=== PATIENT | female | born 1985 | race Caucasian/White ===

== ENCOUNTER 2017-05-30 20:41 | Emergency (ER) | payer OTHER ==
[2017-05-30] MEDS ORDERED: ACETAMINOPHEN 325 MG TABLET PO ONE (23:27)
--- NOTE | 2017-05-30 23:52 | ER Document Report ---
ED General - General Chief Complaint: Fever, MORAN, Body aches Stated Complaint: FEVER AND HEADACHE Time Seen by Provider: 05/30/17 23:20 Notes: Patient is a 31-year-old female presents with complaint of fever. She says that she has had body aches as well as some neck pain and headache for the last 4 days. She has had a fever once she is gone down again had fever today. She is unsure how high fever was. No recent tick bites. She has had some bug bites in the feet. No vomiting. No diarrhea. No dysuria. She does have pain of her right back that radiates into her right lower quadrant. No abnormal vaginal discharge or bleeding. 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 She takes no medications and is otherwise healthy. He says she has had a slight congestion. Slight cough. TRAVEL OUTSIDE OF THE [place] IN LAST 30 DAYS: No - Related Data Allergies/Adverse Reactions: No Known Allergies Allergy (Unverified 05/30/17 21:04) Past Medical History - Social History Smoking Status: Never Smoker Frequency of alcohol use: None Drug Abuse: None Family History: Reviewed & Not Pertinent Renal/ Medical History: Denies: Hx Peritoneal Dialysis Review of Systems - Review of Systems Notes: My Normal Review Basic REVIEW OF SYSTEMS: CONSTITUTIONAL : Fever EENT: Denies eye, ear, throat, or mouth pain or symptoms. Denies nasal or sinus congestion. RESPIRATORY: Denies cough, cold, or chest congestion. Denies shortness of breath, difficulty breathing, or wheezing. GASTROINTESTINAL: Mild right lower quadrant abdominal pain. Denies nausea, vomiting, or diarrhea. Denies constipation. Last BM: GENITOURINARY: Denies difficulty urinating, painful urination, burning, frequency, or blood in urine. FEMALE GENITOURINARY: Denies vaginal bleeding, abnormal or irregular periods. MUSCULOSKELETAL: Denies neck or back pain or joint pain or swelling. SKIN: Denies rash or skin lesions. NEUROLOGICAL: Denies altered mental status or loss of consciousness. Has a headache. Denies weakness or paralysis or loss of use of either side. Denies problems with gait or speech. Denies sensory or motor loss. ALL OTHER SYSTEMS REVIEWED AND NEGATIVE. Physical Exam - Vital signs Vitals: Temp Pulse Resp BP Pulse Ox 100.6 F H 103 H 18 116/70 100 05/30/17 21:05/30/17 21:01 05/30/17 21:01 05/30/17 21:01 05/30/17 21:01 - Notes Notes: General Appearance: Well nourished, alert, cooperative, no acute distress, mild obvious discomfort. Vitals: reviewed, See vital signs table. Head: no swelling or tenderness to the head Eyes: PERRL, EOMI, Conjuctiva clear Mouth: No decreasd moisture Throat: No tonsillar inflammation, No airway obstruction, No lymphadenopathy Ears: Normal-appearing tympanic membranes bilaterally. Neck: Supple, no neck tenderness, Lungs: No wheezing, No rales, No rhonci, No accessory muscle use, good air exchange bilaterally. Heart: Normal rate, Regular rythm, No murmur, no rub Back: Positive Andrews's sign on the right. Abdomen: Normal BS, soft, No rigidity, mild right lower quadrant abdominal tenderness to palpation, No guarding, no rebound, no abdominal masses, Extremities: strength 5/5 in all extremities, good pulses in all extremities, no swelling or tenderness in the extremities, no edema. Skin: warm, dry, appropriate color, no rash Neuro: speech clear, oriented x 3, normal affect, responds appropriately to questions. Course - Re-evaluation Re-evalutation: 05/31/17 02:01 On reevaluation the patient says her headache is improving until Tylenol. She says that the headaches does seem to coincide with body aches. She says that when she does get headaches are typically at the base of her head which she typically gets these headaches even when she is not sick. She still has the pain in her right lower quadrant abdomen and her right lower back. Urinalysis is negative. On exam her pain is not very impressive with palpation of her abdomen yet her pain is focal to the right lower quadrant and therefore will obtain a CBC and BMP to see if she has a leukocytosis. I think meningitis is low on the differential at this time being that her symptoms have been ongoing for 4 days and she looks extremely well. Suspect if she had herpes meningitis or bacterial meningitis she would be at least somewhat altered or confused or more ill-appearing. She is fully neurologically intact, not ill appearing at all, he is fully awake and alert and well appearing. I informed her that because of this we will hold off on lumbar puncture at this time. Dictation of this chart was performed using voice recognition software; therefore, there may be some unintended grammatical errors. 05/31/17 04:[address] scan actually shows fat stranding around the right kidney. This is indicative of a recently passed kidney stone or possible developing infection. Urinalysis does not show much sign of infection; however, she has body aches and fever which clinically would make more sense with a developing pyelonephritis. I have ordered a dose of Rocephin. I will place her on Keflex. She does have some bug bites on her feet. I do not suspect these are tick bite; however, I will still send titers for recommended spotted fever. If they are positive then we will call her back and switch her antibiotics doxycycline. I strongly encouraged to return to ER immediately if she has worsening or symptoms, recurrent fevers, or feels unwell. On exam patient continues to clinically looks very well I feel she is safe to be discharged home. Patient agrees with plan and will be discharged home. Dictation of this chart was performed using voice recognition software; therefore, there may be some unintended grammatical errors. - Vital Signs Vital signs: Temp Pulse Resp BP Pulse Ox 100.6 F H 103 H 18 116/70 100 05/30/17 21:01 05/30/17 21:01 05/30/17 21:01 05/30/17 21:01 05/30/17 21:01 - Laboratory Result Diagrams: 05/31/17 02:20 05/31/17 02:20 Laboratory results interpreted by me: 05/31/17 05/31/17 05/31/17 00:45 02:20 02:20 WBC 11.1 H Hct 35.6 L Monocytes % 14.1 H Absolute Monocytes 1.6 H Sodium 136.8 L Urine Blood SMALL H Ur Leukocyte Esterase TRACE H Discharge - Discharge Clinical Impression: Body aches, Pyelonephritis Fever Qualifiers: Fever type: unspecified Qualified Code(s): R50.9 - Fever, unspecified Back pain Qualifiers: Back pain location: low back pain Chronicity: acute Back pain laterality: right Sciatica presence: without sciatica Qualified Code(s): M54.5 - Low back pain Headache Qualifiers: Headache type: unspecified Headache chronicity pattern: episodic headache Intractability: not intractable Qualified Code(s): R51 - Headache Condition: Good Disposition: HOME, SELF-CARE Additional Instructions: Your urinalysis does not show classic signs of infection; however, the CT scan performed does show stranding around your kidney which is suggestive of a developing kidney infection. This would explain why you have pain in your right lower back that radiates around the right flank. Sometimes this also means that you recently passed a kidney stone; however, in lieu of you having fevers and body aches this most likely represents a developing kidney infection. We did give a dose of antibiotic here for this. You did have some bug bites on your feet. I therefore did send blood titers to look for [place] spotted fever. These will take approximately 2 days to come back. If they are positive we will immediately call you to place her on a different antibiotic. Please return to the ER immediately if if recurrent fevers, severe worsening headache, neck stiffness, vomiting, worsening abdominal pain, or feel that you are worsening. Prescriptions: Cephalexin Monohydrate [Keflex 500 mg Capsule] 500 mg PO Q6H 7 Days capsule Forms: Return to Work
[2017-05-31 01:13] LABS: APPEARANCE,URINE CLEAR; BILIRUBIN,URINE NEGATIVE (NEGATIVE); GLUCOSE, URINE NEGATIVE (NEGATIVE); KETONES,URINE NEGATIVE (NEGATIVE); LEUKOCYTE ESTERASE,URINE TRACE (NEGATIVE); NITRITE,URINE NEGATIVE (NEGATIVE); PROTEIN,URINE NEGATIVE (NEGATIVE); URINE SPECIFIC GRAVITY 1.003; UROBILINOGEN,URINE NEGATIVE mg/dL (<2.0)
--- NOTE | 2017-05-31 01:38 | RADIOLOGY REPORT (SQ) ---
EXAM DESCRIPTION: CHEST PA/LAT COMPLETED DATE/TIME: 05/31/2017 1:09 am REASON FOR STUDY: fever COMPARISON: None. EXAM PARAMETERS: NUMBER OF VIEWS: two views TECHNIQUE: Digital Frontal and Lateral radiographic views of the chest acquired. RADIATION DOSE: NA LIMITATIONS: none FINDINGS: LUNGS AND PLEURA: Ground-glass opacity noted in the left lower lobe. No pneumothorax or p leural effusion. MEDIASTINUM AND HILAR STRUCTURES: No masses or contour abnormalities. HEART AND VASCULAR STRUCTURES: Heart normal size. No evidence for failure. BONES: No acute findings. HARDWARE: None in the chest. IMPRESSION: Ground-glass opacity in the left lower lobe, may represent developing pneumonia. Radiog raphic followup recommended. TECHNICAL DOCUMENTATION: JOB ID: [id number] 2010 [employer]- All Rights Reserved
[2017-05-31 02:42] LABS: ABSOLUTE BASOPHILS # (AUTO) 0.1 10^3/uL (0.0-0.2); ABSOLUTE EOSINOPHILS # (AUTO) 0.1 10^3/uL (0.0-0.6); ABSOLUTE LYMPHOCYTES (AUTO) 1.7 10^3/uL (0.5-4.7); ABSOLUTE MONOCYTES (AUTO) 1.6 10^3/uL (0.1-1.4); ABSOLUTE NEUT (AUTO) 7.7 10^3/uL (1.7-8.2); BASOPHILS % (AUTO) 0.5 % (0-2); EOSINOPHILS % (AUTO) 0.6 % (0-6); HEMATOCRIT 35.6 % (36.0-47.0); HEMOGLOBIN 12.4 g/dL (12.0-15.5); HGB HCT DIFFERENCE 1.6; LYMPHOCYTES % (AUTO) 15.4 % (13-45); MEAN CORPUSCULAR HEMOGLOBIN 30.5 pg (27.0-33.4); MEAN CORPUSCULAR HGB CONC 34.7 g/dL (32.0-36.0); MEAN CORPUSCULAR VOLUME 88 fl (80-97); MONOCYTES % (AUTO) 14.1 % (3-13); RED BLOOD COUNT 4.05 10^6/uL (3.72-5.28); RED CELL DISTRIBUTION WIDTH 12.7 % (11.5-14.0); SEGMENTED NEUTROPHILS % (AUTO) 69.4 % (42-78); WHITE BLOOD COUNT 11.1 10^3/uL (4.0-10.5)
[2017-05-31 02:50] LABS: ALANINE AMINOTRANSFERASE 23 U/L (9-52); ALBUMIN 3.7 g/dL (3.5-5.0); ALKALINE PHOSPHATASE 68 U/L (38-126); ANION GAP 12 (5-19); ASPARTATE AMINO TRANSFERASE 18 U/L (14-36); BILIRUBIN,DIRECT 0.4 mg/dL (0.0-0.4); BILIRUBIN,TOTAL 0.6 mg/dL (0.2-1.3); BLOOD UREA NITROGEN 9 mg/dL (7-20); CALCIUM 8.9 mg/dL (8.4-10.2); CARBON DIOXIDE 23 mmol/L (22-30); CHLORIDE 102 mmol/L (98-107); CREATININE RESULT 0.87 mg/dL (0.52-1.25); GLUCOSE 106 mg/dL (75-110); POTASSIUM 3.8 mmol/L (3.6-5.0); SODIUM 136.8 mmol/L (137-145); TOTAL PROTEIN 6.7 g/dL (6.3-8.2)
--- NOTE | 2017-05-31 03:56 | RADIOLOGY REPORT (SQ) ---
EXAM DESCRIPTION: CT LTD RENAL STONE PROTOCOL ON COMPLETED DATE/TIME: 05/31/2017 3:30 am REASON FOR STUDY: right flank pain COMPARISON: None. TECHNIQUE: CT scan of the abdomen and pelvis performed without intravenous or oral contrast. Images reviewed with lung, soft tissue, and bone windows. Reconstructed coronal and sagittal MPR images revi ewed. All images stored on PACS. All CT scanners at this facility use dose modulation, iterative reconstruction, and/or weight based d osing when appropriate to reduce radiation dose to as low as reasonably achievable (ALARA). [facility]: Dose Right [facility]: CareDose [facility]: Dose Right [facility]: Teradose 4D [facility]: [employer] RADIATION DOSE: Up-to-date CT equipment and radiation dose reduction techniques were employed. CTDIv ol: 5.4 mGy. DLP: 255 mGy-cm.mGy. LIMITATIONS: None. FINDINGS: LOWER CHEST: No consolidation or pleural effusion. NON-CONTRASTED LIVER, SPLEEN, ADRENALS: Evaluation limited by lack of IV contrast. No identified sign ificant masses. PANCREAS: No peripancreatic inflammatory changes. GALLBLADDER: No identified stones by CT criteria. No inflammatory changes to suggest cholecystitis. RIGHT KIDNEY AND URETER: Assessment for masses limited by lack of IV contrast. No significant calci fications. No hydronephrosis or hydroureter. There is mild right perinephric stranding. LEFT KIDNEY AND URETER: Assessment for masses limited by lack of IV contrast. No significant calcif ications. No hydronephrosis or hydroureter. AORTA AND RETROPERITONEUM: No abdominal aortic aneurysm. No retroperitoneal hemorrhage. BOWEL AND PERITONEAL CAVITY: No dilated bowel loops or inflammatory changes. No free fluid. APPENDIX: Not visualized. PELVIS, BLADDER, AND ABDOMINAL WALL:No abnormal masses. No free fluid. Bladder distended. BONES: No acute findings. IMPRESSION: No obstructing urinary tract calculi or hydronephrosis. Mild right-sided perinephric st randing, may be secondary to a recently passed calculus versus acute infection/inflammation such as p yelonephritis. Please correlate with laboratory values/ urinalysis. Distended urinary bladder. COMMENT: Quality ID # [id number]: Final reports with documentation of one or more dose reduction techniques (e.g., Automated exposure control, adjustment of the mA and/or kV according to patient size, use of iterative reconstruction technique) TECHNICAL DOCUMENTATION: JOB ID: [id number] 2010 [facility] [employer]- All Rights Reserved
[2017-05-31] MEDS ORDERED: HYDROCORTISONE 0.5% CREAM 28.35 GM TP PRN (04:01)
[2017-05-31] MEDS ORDERED: LIDOCAINE 1% INJ-PF (10 MG/ML) 30 ML SDV INFIL ONE (04:04)
[2017-05-31] MEDS ORDERED: CEFTRIAXONE INJ 1000 MG VIAL IM ONE (04:04)
[2017-05-31] MEDS ORDERED: HYDROCORTISONE 0.5% CREAM 28.35 GM ONE (04:57)
[2017-05-31] MEDS ORDERED: ONDANSETRON HCL INJ/PF 4 MG/2 ML SDV IV ONE (04:58)
[2017-05-31] MEDS ORDERED: ONDANSETRON 4 MG TAB.RAPDIS PO ONE (05:00)
[2017-05-31 05:17] VITALS: BP 91/48
[2017-06-02 07:07] LABS: ROCKY MTN SPOTTED FEV IGG EIA Negative (Negative)
== END 2017-05-31 05:16 | disposition home or self-care (01) ==
LOC: ER 20:41
DX: N12 Tubulo-interstitial nephritis, not specified as acute or chronic (principal); R50.9 Fever, unspecified; M79.1 Myalgia; M54.5 Low back pain; R51 Headache
CPT/HCPCS: 99284; 96372; 36415; 87086; 85025; 81025; 87088; 80053; 81001; 86757 ×2; 87186; 87804; 71020; 76380; S0119; J3490; J0696